=== PATIENT | male | born 2000 | race Caucasian/White ===

== ENCOUNTER 2021-10-27 14:14 | Emergency (ER) | payer OTHER ==
[~2021-10-27] VITALS: Ht 170.2 cm; Wt 67.9 kg
[2021-10-27] MEDS ORDERED: LIDOCAINE 1% MDV 20ML VIAL INJ ONE (17:10)
[2021-10-27 19:28] VITALS: BP 132/61
== END 2021-10-27 19:42 | disposition home or self-care (01) ==
LOC: M ED 14:14
DX: S90.31XA Contusion of right foot, initial encounter (principal); S92.511A Displaced fracture of proximal phalanx of right lesser toe(s), initial encounter for closed fracture; W22.8XXA Striking against or struck by other objects, initial encounter; Y92.138 Other place on military base as the place of occurrence of the external cause; Y99.1 Military activity